=== PATIENT | male | born 2000 | race Caucasian/White ===

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

== ENCOUNTER 2022-04-07 16:17 | Emergency (ER) | payer BC ==
[~2022-04-07] VITALS: Ht 182.9 cm; Wt 93.0 kg
[2022-04-07 16:20] VITALS: BP_SYST 118
--- NOTE | 2022-04-07 17:00 | NUR ---
Patient to ER bed TRIAGE to gown for evaluation. Side rails up.
--- NOTE | 2022-04-07 17:05 | NUR ---
ER at bedside examining patient.
--- NOTE | 2022-04-07 17:06 | NUR ---
Patient transported to radiology via wheelchair, accompanied by rad staff.
--- NOTE | 2022-04-07 17:10 | NUR ---
PT C/O L ANKLE PAIN S/P FALL WHILE PLAYING BASKETBALL.
--- NOTE | 2022-04-07 17:30 | NUR ---
PT RECEIVED SPLINT.
[2022-04-07] MEDS ORDERED: NAPR-1172 PO (17:54)
--- NOTE | 2022-04-07 18:01 | NUR ---
Patient given written and verbal discharge instructions and verbalizes understanding. ER MD discussed with patient the results and treatment provided. Patient in stable condition. ID arm band removed. Rx of NAPROXEN given. Patient educated on pain management and to follow up with PMD. Pain Scale 2. Opportunity for questions provided and answered. Medication side effect fact sheet provided.
== END 2022-04-07 18:01 | disposition home or self-care (01) ==
LOC: SED 16:17
DX: S83.91XA Sprain of unspecified site of right knee, initial encounter (principal); S93.402A Sprain of unspecified ligament of left ankle, initial encounter; Z79.899 Other long term (current) drug therapy; W21.05XA Struck by basketball, initial encounter; Y93.67 Activity, basketball; Y92.89 Other specified places as the place of occurrence of the external cause; Y99.8 Other external cause status
CPT/HCPCS: 73560-TC; 99284

== ENCOUNTER 2022-12-15 18:13 | Emergency (ER) | payer OTHER, BC ==
[~2022-12-15] VITALS: Ht 182.9 cm; Wt 90.7 kg
[~2022-12-15 18:13] MED LIST changes: +NAPR-1172 PO
[2022-12-15 18:50] VITALS: BP_SYST 107; PULSE 74; RESP 18; TEMP 98.5; O2SAT 98
[2022-12-15] MEDS ORDERED: KETOROLAC TROMETHAMINE 60 MG/2 ML VIAL IM ONE (21:00)
[2022-12-15] MEDS ORDERED: DICL20GE TP (21:55)
[2022-12-15] MEDS ORDERED: IBUP-1971 PO (21:55)
[2022-12-15 22:02] VITALS: BP_SYST 110; PULSE 72; RESP 18; TEMP 98.5; O2SAT 98
== END 2022-12-15 22:02 | disposition home or self-care (01) ==
LOC: SED 18:13
DX: S16.1XXA Strain of muscle, fascia and tendon at neck level, initial encounter (principal); S30.0XXA Contusion of lower back and pelvis, initial encounter; Z79.899 Other long term (current) drug therapy; V89.2XXA Person injured in unspecified motor-vehicle accident, traffic, initial encounter; Y93.89 Activity, other specified; Y92.89 Other specified places as the place of occurrence of the external cause; Y99.8 Other external cause status
CPT/HCPCS: 99284; 72040; 72100; 73030; J1885